=== PATIENT | male | born 1965 | race Caucasian/White ===

== ENCOUNTER 2017-03-14 14:20 | Emergency (ER) | payer BC ==
[~2017-03-14] VITALS: Ht 185.4 cm; Wt 103.0 kg
[2017-03-14 14:22] VITALS: BP 121/80; PULSE 75; RESP 16; TEMP 98.7; O2SAT 98
[2017-03-14] MEDS ORDERED: BACT800T5 PO (14:51)
[2017-03-14] MEDS ORDERED: CLIN1CAP6 PO (15:13)
--- NOTE | 2017-03-14 15:13 | PD ---
HPI Chief Complaint: Pain: Acute or Chronic Time Seen by Provider: 14:37 Travel History International Travel<30 days: No Contact w/Intl Traveler<30days: No Traveled to known affect area: No History of Present Illness HPI This is a 51 year old male who presents with four days of pain and swelling involving his left knee cap, constant, moderate severity, associated with some pain when he stands still and rests. He denies any fevers or chills. three days ago he went to an urgent care and had an antibiotic injection and was discharged on bactrim which been taking but his knee has been more swollen so he came to the emergency department. He is able to bend the knee without pain. PFSH Past Medical History Medical History: Denies Significant Hx Hx Anticoagulant Therapy: No Diabetes: No Diminished Hearing: No Influenza Vaccination: Yes ?: Not Past Surgical History Abdominal Surgery: Yes (L INGUINAL HERNIA) Social History Alcohol Use: Yes Tobacco Use: No Allergies-Medications (Allergen,Severity, Reaction): Coded Allergies: No Known Allergies (Unverified , 03/14/17) Reported Meds & Prescriptions Reported Meds & Active Scripts Active Reported Bactrim DS (Sulfamethoxazole-Trimethoprim) 800-160 Mg Tab 1 Tab PO BID Review of Systems Except as stated in HPI: all other systems reviewed are Neg Physical Exam Narrative GENERAL:Well appearing, no acute distress SKIN: 4 x 4 cm area of warmth and erythema with a mildly tender fluctuant bursa inferior to the patella. HEAD: Atraumatic. Normocephalic. EYES: Pupils equal and round. No injection or drainage. ENT: Moist mucous membranes NECK: Trachea midline. CARDIOVASCULAR: Regular rate and rhythm. No murmur appreciated. RESPIRATORY: Clear to auscultation. Breath sounds equal bilaterally. GASTROINTESTINAL: Abdomen soft, non-tender, nondistended. MUSCULOSKELETAL: Full painless range of motion of the left knee. No joint effusion. NEUROLOGICAL: Awake and alert. No obvious cranial nerve deficits. Moving all extremities. PSYCHIATRIC: Appropriate mood and affect; insight and judgment normal. Data Data Last Documented VS Vital Signs Date Time Temp Pulse Resp B/P Pulse Ox O2 Delivery O2 Flow Rate FiO2 03/14/17 14:22 98.7 75 16 121/80 98 MDM Medical Decision Making Medical Screen Exam Complete: Yes Emergency Medical Condition: Yes Interpretation(s) Afebrile, no tachycardia, normotensive Differential Diagnosis Bursitis, septic bursitis, septic arthritis Narrative Course This is a 51-year-old male who presents to the emergency department with redness and warmth overlying the inferior aspect of the left knee. He has no joint effusion and has full painless range of motion of the left knee so I don' t suspect a septic arthritis. He does appear to have an inflamed bursa and an overlying cellulitis. I suspect he may have a septic arthritis although his warmth and redness is fairly minimal and this may just reflect a cellulitis or soft tissue infection. I think it's reasonable to change his antibiotic therapy to clindamycin to make sure he has adequate staph coverage, and he was told to Parviz wrap the knee and to follow-up with orthopedics as soon as possible for possible drainage if he does not improve. He is nontoxic appearing and I think appropriate for outpatient therapy. Diagnosis Primary Impression: Bursitis Qualified Code: M70.52 - Bursitis of left knee, unspecified bursa Referrals: [facility] Patient Instructions: General Instructions Additional Instructions: If you develop fever, increasing redness, warmth, or spreading of your infection , or severe pain return to the emergency department immediately as you may require antibiotics through your IV. Complete your course of antibiotics as prescribed. Follow-up with orthopedics as soon as possible for possible drainage if you don' t improve. Med/Other Pt SpecificInfo: Prescription(s) given Scripts Clindamycin 300 Mg Lle352 Mg PO TID #21 CAP Prov:Natasha Lazo MD 03/14/17 Disposition: 01 DISCHARGE HOME Condition: Stable Natasha Lazo MD March 14, 2017 15:13
== END 2017-03-14 15:20 | disposition home or self-care (01) ==
LOC: PHED 14:20
DX: M70.52 Other bursitis of knee, left knee (principal)
CPT/HCPCS: 99283